=== PATIENT | female | born 1995 | race Caucasian/White ===

== ENCOUNTER 2022-10-21 18:09 | Emergency (ER) | payer BC, OTHER ==
[2022-10-21 18:14] VITALS: TEMP 98.1; BMI 28.3
[2022-10-21] MEDS ORDERED: ONDANSETRON *ODT* 4 MG TABLET SL ONE (18:54)
[2022-10-21] MEDS ORDERED: KETOROLAC TROMETHAMINE 30 MG/1 ML VIAL IM ONE (18:55)
[2022-10-21] MEDS ORDERED: KETOROLAC TROMETHAMINE 30 MG/1 ML VIAL ONE (19:00)
[2022-10-21] MEDS ORDERED: ONDANSETRON *ODT* 4 MG TABLET ONE (19:00)
[2022-10-21] MEDS ORDERED: PROMETHAZINE HCL 50 MG/1 ML AMP IM ONE (19:43)
[2022-10-21] MEDS ORDERED: PROMETHAZINE HCL 25 MG/1 ML VIAL ONE (19:55)
[2022-10-21] MEDS ORDERED: SODIUM CHLORIDE 0.9% 500 ML INFUS.BAG IV ONE (21:27)
[2022-10-21] MEDS ORDERED: METOCLOPRAMIDE HCL INJECTION 10 MG/2 ML VIAL IVPUSH ONE (21:27)
[2022-10-21] MEDS ORDERED: ACETAMINOPHEN 500 MG TABLET (FP) PO ONE (21:28)
[2022-10-21] MEDS ORDERED: ACETAMINOPHEN 500 MG TABLET (FP) ONE (21:38)
[2022-10-21] MEDS ORDERED: METOCLOPRAMIDE HCL INJECTION 10 MG/2 ML VIAL ONE (21:38)
[2022-10-21 22:37] VITALS: BP 122/78; PULSE 78; RESP 19
== END 2022-10-21 22:59 | disposition home or self-care (01) ==
LOC: JERFT 18:09 → JER 18:09 → JERFT 22:59
PROC: 3E033GC Introduction of Other Therapeutic Substance into Peripheral Vein, Percutaneous Approach (ICD-10-PCS; principal; 2022-10-21)
PROC: 3E023GC Introduction of Other Therapeutic Substance into Muscle, Percutaneous Approach (ICD-10-PCS; 2022-10-21)
PROC: 3E0233Z Introduction of Anti-inflammatory into Muscle, Percutaneous Approach (ICD-10-PCS; 2022-10-21)
DX: R10.30 Lower abdominal pain, unspecified (principal); N83.519 Torsion of ovary and ovarian pedicle, unspecified side; R10.2 Pelvic and perineal pain; R51.9 Headache, unspecified; R35.0 Frequency of micturition
CPT/HCPCS: 76830-TC; 99284-25; Q0162